=== PATIENT | male | born 1975 | race Two or more races ===

== ENCOUNTER 2021-01-15 15:05 | Emergency (ER) | payer OTHER ==
[2021-01-15 15:20] VITALS: BMI 26.4
[2021-01-15] MEDS ORDERED: CASIRIVIMAB (REGN10933) 1,200 MG, IMDEVIMAB (REGN10987) 1,200 MG in SODIUM CHLORIDE 250 ML IVPB ONE (16:08)
[2021-01-15 17:15] LABS: BASO % 0.2 % (0-2.0); EOS % 0.3 % (0-4.5); HEMATOCRIT 42.9 % (35.4-49); HEMOGLOBIN 14.8 GM/dL (11.7-16.9); LYMPH % 7.9 % (8-40); MCH 32.5 pg (25.7-33.7); MCHC 34.5 g/dl (32.0-35.9); MEAN CELL VOLUME 94.1 fl (80-96); MEAN PLT VOLUME 10.3 fl (7.5-11.1); MONO % 2.9 % (3.8-10.2); NEUT % 88.7 % (42.8-82.8); PLATELET COUNT 117 K/MM3 (134-434); RBC 4.56 M/mm3 (4.00-5.60); RDW 12.8 % (11.9-15.9); WHITE BLOOD COUNT 6.1 K/mm3 (4.0-10.0)
[2021-01-15 17:42] LABS: ALBUMIN 3.8 g/dl (3.4-5.0); BLOOD UREA NITROGEN 20.2 mg/dL (7-18); CALCIUM 8.4 mg/dL (8.5-10.1)
[2021-01-15 17:47] LABS: BILIRUBIN,TOTAL 0.4 mg/dL (0.2-1); TOT PROT 7.1 g/dl (6.4-8.2)
[2021-01-15 20:38] VITALS: PULSE 69; TEMP 98.7
[2021-01-15 20:45] VITALS: BP 101/47
== END 2021-01-15 20:45 | disposition home or self-care (01) ==
LOC: JCOVINFU 15:05 → JER 15:05 → JCOVINFU 20:45
DX: U07.1 COVID-19 (principal)
CPT/HCPCS: 36415; 80053; 85025; 99284-25; M0243; Q0243